=== PATIENT | female | born 1975 | race Two or more races ===

== ENCOUNTER 2018-01-13 08:56 | Day surgery (SDC) | payer OTHER | END 2018-01-13 14:40 | disposition home or self-care (01) | LOC: AMB-ENDOS 08:56 | DX: D12.8 Benign neoplasm of rectum (principal); K92.1 Melena ==

== ENCOUNTER 2020-05-09 10:31 | Day surgery (SDC) | payer OTHER | END 2020-05-09 14:55 | disposition home or self-care (01) | LOC: AMB-ENDOS 10:31 | PROVIDERS: ATTEND Surgery | DX: K62.89 Other specified diseases of anus and rectum (principal); Z20.828 Contact with and (suspected) exposure to other viral communicable diseases ==

== ENCOUNTER 2021-05-24 01:02 | Emergency (ER) | payer OTHER ==
[~2021-05-24] VITALS: Ht 157.5 cm; Wt 49.9 kg
[2021-05-24] MEDS ORDERED: COZAAR50 MG (01:54)
[2021-05-24] MEDS ORDERED: CRESTOR10 MG (01:55)
[2021-05-24] MEDS ORDERED: KETO10TA2 PO (04:16)
== END 2021-05-24 05:53 | disposition home or self-care (01) ==
LOC: ER 01:02
DX: S93.492A Sprain of other ligament of left ankle, initial encounter (principal); X50.1XXA Overexertion from prolonged static or awkward postures, initial encounter; Y93.89 Activity, other specified; Y92.018 Other place in single-family (private) house as the place of occurrence of the external cause; Y99.8 Other external cause status